=== PATIENT | female | born 1940 | race Caucasian/White ===

== ENCOUNTER 2023-06-26 21:18 | Emergency (ER) | payer MEDICARE ==
[2023-06-26] MEDS ORDERED: Morphine 4 MG/ML VIAL ONE (21:40)
[2023-06-26] MEDS ORDERED: Ketorolac Tromethamine 30 MG (1 mL) VIAL ONE (22:35)
== END 2023-06-26 23:43 | disposition short-term general hospital (02) ==
LOC: CSHERS 21:18
DX: S72.401A Unspecified fracture of lower end of right femur, initial encounter for closed fracture (principal); E11.9 Type 2 diabetes mellitus without complications; E78.00 Pure hypercholesterolemia, unspecified; Z87.891 Personal history of nicotine dependence; Z75.3 Unavailability and inaccessibility of health-care facilities; W18.30XA Fall on same level, unspecified, initial encounter
CPT/HCPCS: J1885; J2270